=== PATIENT | female | born 1940 | race Caucasian/White ===

== ENCOUNTER 2017-08-21 03:06 | Emergency (ER) | payer OTHER ==
[2017-08-21 03:16] VITALS: TEMP 97.5
[2017-08-21] MEDS ORDERED: NS 1,000 ML IV ONE (03:33)
[2017-08-21] MEDS ORDERED: ONDANSETRON 4 MG/2 ML VIAL IVP ONE (03:33)
[2017-08-21] MEDS ORDERED: DIAZEPAM 10 MG/2 ML SYR IVP ONE (03:34)
--- NOTE | 2017-08-21 03:42 | EDPHY ---
H & P Stated Complaint: diarrhea and vomitting hx of diverticulitis Time Seen by Provider: 08/21/17 03:18 HPI/ROS: Chief Complaint: Abdominal pain, nausea, vomiting HPI: 76-year-old woman with history of celiac disease and diverticulitis in the past woke this morning at 12:45 p.m. the morning with severe abdominal pain , primarily in the left hand side. She then had some loose stools and then vomited. Initially her pain was a 10/10, it is now 3/10. She is visiting from out of town. Does have a history some chronic left-sided abdominal pain which her physicians attributed to some chronic inflammatory disease. She has had negative ultrasounds of her abdomen. No chest pain or shortness of breath. No fevers or chills. ROS: 10 point Review of Systems is negative except as noted in the HPI. PMH: Celiac disease, diverticulosis, diverticulitis, cholecystectomy, TAHBSO, parathyroid surgery Social History: Positive smoking, occasional alcohol, no recreational drug use Family History: non-contributory Physical Exam: Gen: Awake, Alert, No Distress HEENT: Nose: no rhinorrhea Eyes: PERRLA, EOMI Mouth: Moist mucosa Neck: Supple, no JVD Chest: nontender, lungs clear to auscultation Heart: S1, S2 normal, no murmur Abd: Soft, significant left lower quadrant tenderness to palpation with voluntary guarding Back: no CVA tenderness, no midline tenderness Ext: no edema, non-tender Skin: no rash Neuro: CN II-XII intact, Sensation grossly intact, Strength 5/5 in bilateral upper and lower extremities - Personal History Current Tetanus/Diphtheria Vaccine: Yes Current Tetanus Diphtheria and Acellular Pertussis (TDAP): Yes - Medical/Surgical History Hx Asthma: No Hx Chronic Respiratory Disease: No Hx Diabetes: No Hx Cardiac Disease: Yes Hx Renal Disease: No Hx Cirrhosis: No Hx Alcoholism: No Hx HIV/AIDS: No Hx Splenectomy or Spleen Trauma: No Other PMH: [place] 1994. diverticulitis with perferation 2010. ciliac disease. hypotension - Social History Smoking Status: Heavy smoker Constitutional: Initial Vital Signs Temperature (C) 36.4 C 08/21/17 03:08 Heart Rate 95 08/21/17 03:08 Respiratory Rate 18 08/21/17 03:08 Blood Pressure 123/74 H 08/21/17 03:08 O2 Sat (%) 95 08/21/17 03:08 O2 Delivery Mode Room Air Allergies/Adverse Reactions: penicillin G Allergy (Verified 08/21/17 03:15) Home Medications: Medication Instructions Recorded Ciprofloxacin [Cipro] 500 mg PO BID #20 tab 08/21/17 Turmeric 08/21/17 Medical Decision Making - Diagnostics Imaging Results: CT scan abdomen pelvis shows diverticulosis with no significant inflammation. There is some areas of density within diverticuli which could represent some mild early diverticulitis. There is no evidence of perforation. Studies interpreted by Dr. Aden. Imaging: Discussed imaging studies w/ call center rn Radiologist ED Course/Re-evaluation: Patient is improved after IV Valium. She does not want any narcotics. CBC shows a mild leukocytosis with left shift. Remainder of her studies are unremarkable. CT scan noted for likely early diverticulitis. Will start her on ciprofloxacin, refer for outpatient follow-up and she is going to be in town for the next month. She will return for any worsening symptoms or concerns. - Data Points Laboratory Results: Laboratory Results 08/21/17 04:30 08/21/17 04:30 08/21/17 08/21/17 04:30 04:30 WBC 13.34 10^3/uL H 10^3/uL (3.80-9.50) RBC 4.55 10^6/uL 10^6/uL (4.18-5.33) Hgb 12.7 g/dL g/dL (12.6-16.3) Hct 40.2 % % (38.0-47.0) MCV 88.4 fL fL (81.5-99.8) MCH 27.9 pg pg (27.9-34.1) MCHC 31.6 g/dL L g/dL (32.4-36.7) RDW 15.3 % H % (11.5-15.2) Plt Count 136 10^3/uL L 10^3/uL (150-400) MPV 10.5 fL fL (8.7-11.7) Neut % (Auto) 88.4 % H % (39.3-74.2) Lymph % (Auto) 4.3 % L % (15.0-45.0) [place] % (Auto) 6.3 % % (4.5-13.0) Eos % (Auto) 0.3 % L % (0.6-7.6) Baso % (Auto) 0.3 % % (0.3-1.7) Nucleat RBC Rel Count 0.0 % % (0.0-0.2) Absolute Neuts (auto) 11.79 10^3/uL H 10^3/uL (1.70-6.50) Absolute Lymphs (auto) 0.58 10^3/uL L 10^3/uL (1.00-3.00) Absolute Monos (auto) 0.84 10^3/uL H 10^3/uL (0.30-0.80) Absolute Eos (auto) 0.04 10^3/uL 10^3/uL (0.03-0.40) Absolute Basos (auto) 0.04 10^3/uL 10^3/uL (0.02-0.10) Absolute Nucleated RBC 0.00 10^3/uL 10^3/uL (0-0.01) Immature Gran % 0.4 % % (0.0-1.1) Immature Gran # 0.05 10^3/uL 10^3/uL (0.00-0.10) Sodium 149 mEq/L H mEq/L (134-144) Potassium 4.8 mEq/L mEq/L (3.5-5.2) Chloride 112 mEq/L H mEq/L (97-110) Carbon Dioxide 19 mEq/l L mEq/l (22-31) Anion Gap 18 mEq/L H mEq/L (8-16) BUN 18 mg/dL mg/dL (7-23) Creatinine 0.8 mg/dL mg/dL (0.6-1.0) Estimated GFR > 60 Glucose 104 mg/dL H mg/dL (70-100) Calcium 9.2 mg/dL mg/dL (8.5-10.4) Total Bilirubin 0.6 mg/dL mg/dL (0.1-1.4) AST 39 IU/L IU/L (14-46) ALT 21 IU/L IU/L (9-52) Alkaline Phosphatase 90 IU/L IU/L (38-126) Total Protein 8.0 g/dL g/dL (6.3-8.2) Albumin 3.8 g/dL g/dL (3.5-5.0) Lipase 98 IU/L IU/L (23-300) Specimen Hemolysis 105 Medications Given: Discontinued Medications Diazepam (Valium Injection) 5 mg IVP EDNOW ONE Stop: 08/21/17 03:35 Last Admin: 08/21/17 04:09 Dose: 5 mg Sodium Chloride (Ns) 1,000 mls @ 0 mls/hr IV ONCE ONE; Wide Open PRN Reason: Protocol Stop: 08/21/17 03:34 Last Admin: 08/21/17 04:06 Dose: 1,000 mls Ondansetron HCl (Zofran) 4 mg IVP EDNOW ONE Stop: 08/21/17 03:34 Last Admin: 08/21/17 04:07 Dose: 4 mg Departure - Departure Disposition: Home, Routine, Self-Care Clinical Impression: Diverticulitis Condition: Good Instructions: Diverticulitis (ED) Additional Instructions: Please take your full course of antibiotics. Alternate acetaminophen (1000 mg) with ibuprofen (400 mg) every 4 hours as needed for pain. Return to the emergency department for increasing abdominal pain, fevers, chills , uncontrolled nausea or vomiting, or any other concerns. Follow up with a primary care physician in 4-5 days for re-evaluation if symptoms are not improving. Referrals: Yumiko Pino MD [[facility] [place] Primary Care Provider] - As per Instructions Prescriptions: Ciprofloxacin [Cipro] 500 mg PO BID #20 tab
[2017-08-21 04:45] LABS: % IMMATURE GRANULYOCYTES 0.4 % (0.0-1.1); ABSOLUTE IMMATURE GRANULOCYTES 0.05 10^3/uL (0.00-0.10); ADD DIFF? NO; ADD MORPH? NO; ADD SCAN? NO; ATYPICAL LYMPHOCYTE FLAG 0 (0-99); FRAGMENT RBC FLAG 0 (0-99); HEMATOCRIT 40.2 % (38.0-47.0); HEMOGLOBIN 12.7 g/dL (12.6-16.3); LEFT SHIFT FLG 0 (0-99); LIPEMIA HEMOLYSIS FLAG 80 (0-99); MEAN CELL HEMOGLOBIN 27.9 pg (27.9-34.1); MEAN CELL HEMOGLOBIN CONCENTR. 31.6 g/dL (32.4-36.7); MEAN CELL VOLUME 88.4 fL (81.5-99.8); MEAN PLATELET VOLUME 10.5 fL (8.7-11.7); PLATELET CLUMPS FLAG 0 (0-99); PLATELET COUNT 136 10^3/uL (150-400); RED BLOOD CELL COUNT 4.55 10^6/uL (4.18-5.33); RED CELL DISTRIBUTION WIDTH 15.3 % (11.5-15.2)
[2017-08-21 04:57] LABS: ALANINE AMINOTRANSFERASE 21 IU/L (9-52); ALBUMIN 3.8 g/dL (3.5-5.0); ALKALINE PHOSPHATASE 90 IU/L (38-126); ANION GAP 18 mEq/L (8-16); ASPARTATE AMINOTRANSFERASE 39 IU/L (14-46); BILIRUBIN,TOTAL 0.6 mg/dL (0.1-1.4); CALCIUM 9.2 mg/dL (8.5-10.4); CARBON DIOXIDE 19 mEq/l (22-31); CHLORIDE 112 mEq/L (97-110); CREATININE 0.8 mg/dL (0.6-1.0); GLOMERULAR FILTRATION RATE > 60; GLUCOSE 104 mg/dL (70-100); POTASSIUM 4.8 mEq/L (3.5-5.2); SODIUM 149 mEq/L (134-144); SPECIMEN HEMOLYSIS 105
[2017-08-21 05:01] VITALS: O2SAT 92
[2017-08-21] MEDS ORDERED: IOPAMIDOL (ISOVUE-300) 100 ML BTL ONE (05:01)
[2017-08-21] MEDS ORDERED: CIPROFLOXACIN 500 MG TAB PO ONE (06:04)
[2017-08-21 06:17] VITALS: BP 145/89; PULSE 72; RESP 15
== END 2017-08-21 06:51 | disposition home or self-care (01) ==
DX: K57.92 Diverticulitis of intestine, part unspecified, without perforation or abscess without bleeding (principal); F17.200 Nicotine dependence, unspecified, uncomplicated; I25.2 Old myocardial infarction; E86.9 Volume depletion, unspecified; Z90.49 Acquired absence of other specified parts of digestive tract
CPT/HCPCS: 74177; 96361; 96374; 96375; 99285; J2405; Q9967

== ENCOUNTER 2017-09-11 20:25 | Emergency (ER) | payer OTHER ==
[2017-09-11] MEDS ORDERED: NS 1,000 ML IV ONE (21:15)
[2017-09-11] MEDS ORDERED: HYDROmorphONE/DILAUDID 1 MG/ML INJ IVP ONE (21:15)
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
[2017-09-11 21:23] LABS: PLATELET COUNT 242 10^3/uL (150-400)
[2017-09-11] MEDS ORDERED: IOPAMIDOL (ISOVUE-300) 100 ML BTL ONE (21:39)
[2017-09-11 23:49] VITALS: BP 141/84; PULSE 82; RESP 16; TEMP 97.9; O2SAT 96
== END 2017-09-11 23:40 | disposition home or self-care (01) ==
DX: R10.84 Generalized abdominal pain (principal); I25.2 Old myocardial infarction; F17.200 Nicotine dependence, unspecified, uncomplicated; E86.9 Volume depletion, unspecified
CPT/HCPCS: 74177; 96360; 99285; J1170; Q9967